=== PATIENT | female | born 1950 | race Caucasian/White ===

== ENCOUNTER 2017-12-23 13:33 | Emergency (ER) | payer OTHER ==
[~2017-12-23] VITALS: Ht 165.1 cm; Wt 128.6 kg
[2017-12-23] MEDS ORDERED: AUGMENTIN875 MG PO ×2 (17:00→17:11)
[2017-12-23 17:19] VITALS: BP 127/85
== END 2017-12-23 17:22 | disposition home or self-care (01) ==
LOC: EME 13:33
DX: S01.511A Laceration without foreign body of lip, initial encounter (principal); S50.11XA Contusion of right forearm, initial encounter; S80.02XA Contusion of left knee, initial encounter; W01.0XXA Fall on same level from slipping, tripping and stumbling without subsequent striking against object, initial encounter; Z23 Encounter for immunization; Z96.652 Presence of left artificial knee joint; Z98.84 Bariatric surgery status
CPT/HCPCS: 70450; 70486; 73090; 73564; 99281; 99284